=== PATIENT | female | born 1980 | race Caucasian/White ===

== ENCOUNTER 2020-04-25 22:45 | Emergency (ER) | payer OTHER ==
[~2020-04-25] VITALS: Ht 147.3 cm; Wt 54.4 kg
[2020-04-25 22:55] VITALS: BP 108/61
[2020-04-25] MEDS ORDERED: KETOROLAC 60 MG/2 ML VIAL IM ONE (23:20)
[2020-04-25] MEDS ORDERED: IBUP-2213 PO (23:34)
[2020-04-26] MEDS ORDERED: MORPHINE SULFATE 4 MG/ML SYR IM ONE
[2020-04-26 00:32] VITALS: BP 108/61
== END 2020-04-26 00:30 | disposition home or self-care (01) ==
LOC: MED 22:45
DX: S00.512A Abrasion of oral cavity, initial encounter (principal); T14.8XXA Other injury of unspecified body region, initial encounter; Y08.89XA Assault by other specified means, initial encounter; Y93.89 Activity, other specified; Y92.89 Other specified places as the place of occurrence of the external cause; Y99.8 Other external cause status
CPT/HCPCS: 90471; 90715; 96372; 99284; J1885; J2270; 96374